=== PATIENT | female | born 1985 | race Caucasian/White ===

== ENCOUNTER 2017-03-23 18:51 | Emergency (ER) | payer MEDICAID ==
[~2017-03-23] VITALS: Ht 160 cm; Wt 61.0 kg
[2017-03-23 18:54] VITALS: Ht 160 cm; Wt 61.0 kg
[2017-03-23] MEDS ORDERED: SOD CHLORIDE 0.9% 1,000 ML IV ONE (19:30)
[2017-03-23] MEDS ORDERED: ONDANSETRON 4 MG INJ IV STA (19:30)
[2017-03-23 20:05] LABS: ADD SCAN DIFF NO
[2017-03-23 20:07] LABS: BASOPHILS % 0.4 % (0.0-2.0); EOSINOPHILS # 0.1 10^3/ul (0.0-0.5); EOSINOPHILS % 0.7 % (0.0-7.0); HEMATOCRIT 44.6 % (37.0-47.0); HEMOGLOBIN 14.1 g/dl (12.0-16.0); LYMPHOCYTES # 2.9 10^3/ul (0.8-2.9); LYMPHOCYTES % 28.5 % (15.0-51.0); MEAN CORPUSCULAR HGB CONC 31.6 g/dl (32.0-37.0); MEAN CORPUSCULAR VOLUME 85.4 fl (82.0-101.0); MONOCYTE # 0.6 10^3/ul (0.3-0.9); MONOCYTES % 6.3 % (0.0-11.0); NEUTROPHIL # 6.5 10^3/ul (1.6-7.5); NEUTROPHILS % 63.8 % (39.0-77.0); PLATELET COUNT 312 10^3/UL (140-415); RED BLOOD COUNT 5.22 10^6/ul (4.20-5.40); RED CELL DISTRIBUTION WIDTH 13.2 % (11.5-14.5); WHITE BLOOD COUNT 10.2 10^3/ul (4.8-10.8)
[2017-03-23 20:08] LABS: ADD UMIC YES; UR BILIRUBIN (Dip) NEGATIVE (NEGATIVE); UR BLOOD (Dip) NEGATIVE (NEGATIVE); UR CLARITY SLIGHTLY CLOUDY (CLEAR); UR COLOR LT. YELLOW (YELLOW); UR GLUCOSE (Dip) NEGATIVE (NEGATIVE); UR KETONES (Dip) NEGATIVE (NEGATIVE); UR LEUKOCYTE ESTERASE (Dip) 1+ (NEGATIVE); UR NITRITE (Dip) NEGATIVE (NEGATIVE); UR TOTAL PROTEIN (Dip) NEGATIVE (NEGATIVE); UR UROBILINOGEN (Dip) 0.2 E.U./dL (0.1-1.0)
[2017-03-23 20:20] LABS: UR BACTERIA FEW; UR SQUAMOUS EPITHELIAL CELL MODERATE; URINE RBCS NONE SEEN /HPF (0)
[2017-03-23 20:30] LABS: ALBUMIN 5.5 g/dl (3.3-4.9); ALBUMIN/GLOBULIN RATIO 1.83; BILIRUBIN,INDIRECT 0.3 mg/dl (0-1.1); BILIRUBIN,TOTAL 0.3 mg/dl (0.2-1.3); CALCIUM 9.9 mg/dl (8.4-10.2); CREATININE 0.66 mg/dl (0.44-1.00); TOTAL PROTEIN 8.5 g/dl (6.1-8.1)
[2017-03-23] MEDS ORDERED: LORAZEPAM 2 MG INJ IV ONE (21:30)
[2017-03-23] MEDS ORDERED: NITR-58 PO (21:56)
[2017-03-23] MEDS ORDERED: MECL12.574 PO (21:56)
[2017-03-23 22:05] VITALS: BP 127/68; PULSE 81; RESP 20
--- NOTE | 2017-03-23 23:42 | ERD ---
ER Documentation Chief Complaint Date/Time DATE: 03/23/17 TIME: 23:38 Chief Complaint dizziness x 1 week HPI 31-year-old female patient with no significant past medical history presents to the ED complaining of dizziness that occurred 1 week ago. She reports that she feels like her throat is closing and feels short of breath. States that she is nauseous and feels like she is sweating. Denies any chest pain, wheezing, abdominal pain, diarrhea, wheezing, weakness, numbness or tingling. Reports that the dizziness is positional. patient reports that her last menses was on March 01, 2017. Denies any head or neck trauma. ROS All systems reviewed and are negative except as per history of present illness. Medications Home Meds Active Scripts Meclizine Hcl* (Antivert*) 12.5 Mg Tab, 12.5 MG PO Q6H Y for DIZZINESS, #20 TAB Prov:BANG JOHNSON PA-C 03/23/17 Nitrofurantoin Monohyd Macrocr* (Macrobid*) 100 Mg Capsr, 100 MG PO BID for 7 Days, CAP Prov:BANG JOHNSON PA-C 03/23/17 Allergies Allergies: Coded Allergies: No Known Allergy (Unverified , 03/23/17) PMhx/Soc Medical and Surgical Hx: pt denies Medical Hx, pt denies Surgical Hx Hx Alcohol Use: No Hx Substance Use: No Hx Tobacco Use: No Smoking Status: Never smoker Physical Exam Vitals Vital Signs Date Time Temp Pulse Resp B/P Pulse Ox O2 Delivery O2 Flow Rate FiO2 03/23/17 22:05 81 20 127/68 99 Room Air 03/23/17 18:54 97.4 90 20 147/89 100 Physical Exam Const: Ale-yva-zioawcyvz, well-nourished. In no acute distress. Head: Atraumatic, normocephalic Eyes: Normal Conjunctiva without injection. No purulent discharge. PERRLA. EOMI ENT: Normal external ear. Ear canal without erythema. Tympanic membrane pearly gaytan without effusion or bulging. Nasal canal clear with normal turbinates. Moist oropharynx without tonsillar exudates. Non-erythematous pharynx. Uvula midline. No drooling. No trismus. Neck: No cervical midline tenderness. Full range of motion. No meningismus. No cervical lymphadenopathy. No JVD. Resp: Clear to auscultation bilaterally. No wheezing, rhonchi, rales, or crackles. No accessory muscle use. No retractions. Cardio: Regular rate and rhythm. No murmurs, rubs or gallops. Skin: Normal skin turgor. No petechiae or rashes Ext: No cyanosis, or edema. Distal pulses intact bilaterally. Neur: Awake and alert. Normal gait. Normal coordination. Cranial Nerves II- VII intact. Normal finger to nose. Muscle strength 5/5. Sensation intact. Psych: Normal Mood and Affect Results 24 hrs Laboratory Tests Test 03/23/17 19:45 03/23/17 19:48 Urine Color LT. YELLOW Urine Clarity SLIGHTLY CLOUDY Urine pH 8.5 Urine Specific [place] 1.010 Urine Ketones NEGATIVE Urine Nitrite NEGATIVE Urine Bilirubin NEGATIVE Urine Urobilinogen 0.2 E.U./dL Urine Leukocyte Esterase 1+ Urine Microscopic RBC NONE SEEN/HPF Urine Microscopic WBC 2-5/HPF Urine Squamous Epithelial Cells MODERATE Urine Amorphous Phosphates MANY Urine Bacteria FEW Urine Hemoglobin NEGATIVE Urine Glucose NEGATIVE% Urine Total Protein NEGATIVE White Blood Count 10.210^3/ul Red Blood Count 5.2210^6/ul Hemoglobin 14.1g/dl Hematocrit 44.6% Mean Corpuscular Volume 85.4fl Mean Corpuscular Hemoglobin 27.0pg Mean Corpuscular Hemoglobin Concent 31.6g/dl Red Cell Distribution Width 13.2% Platelet Count 11368^3/UL Mean Platelet Volume 10.0fl Neutrophils % 63.8% Lymphocytes % 28.5% Monocytes % 6.3% Eosinophils % 0.7% Basophils % 0.4% Nucleated Red Blood Cells % 0.0/100WBC Neutrophils # 6.510^3/ul Lymphocytes # 2.910^3/ul Monocytes # 0.610^3/ul Eosinophils # 0.110^3/ul Basophils # 0.010^3/ul Nucleated Red Blood Cells # 0.010^3/ul Sodium Level 143mmol/L Potassium Level 4.0mmol/L Chloride Level 104mmol/L Carbon Dioxide Level 27mmol/L Anion Gap 16 Blood Urea Nitrogen 8mg/dl Creatinine 0.66mg/dl Glucose Level 93mg/dl Calcium Level 9.9mg/dl Total Bilirubin 0.3mg/dl Direct Bilirubin 0.00mg/dl Indirect Bilirubin 0.3mg/dl Aspartate Amino Transf (AST/SGOT) 25IU/L Alanine Aminotransferase (ALT/SGPT) 47IU/L Alkaline Phosphatase 73IU/L Total Protein 8.5g/dl Albumin 5.5g/dl Globulin 3.00g/dl Albumin/Globulin Ratio 1.83 Lipase 111U/L Current Medications Medications (Trade) Dose Ordered Sig/Cherrie Route PRN Reason Start Time Stop Time Status Last Admin Dose Admin Sodium Chloride (NS) 1,000 ml @ 1,000 mls/hr Q1H ONCE IV 03/23/17 19:30 03/23/17 20:29 DC 03/23/17 19:55 Ondansetron HCl (Zofran Inj) 4 mg ONCE STAT IV 03/23/17 19:30 03/23/17 19:33 DC 03/23/17 19:56 Lorazepam (Ativan) 1 mg ONCE ONCE IV 03/23/17 21:30 03/23/17 21:31 DC 03/23/17 21:15 Procedures/MDM This is a 31-year-old female patient with no significant past medical history presents the ED complaining of dizziness that occurred 1 week ago. Patient is afebrile nontoxic appearing. Patient has normal vital signs. Patient was further worked up with CBC, CMP, lipase, UA, EKG, urine . Patient's pain and symptoms have improved after treatment with 1 L of normal saline, Ativan, Zofran. CBC: No leukocytosis. No e/o of systemic infection. No e/o anemia. CMP: No e/o severe acidosis, alkalosis, renal failure, diabetic ketoacidosis, liver disease Lipase within normal limits. Urine: 1+ leukocyte esterase with WBC 2-5, no nitrites, no hematuria. Urine : Negative EKG reviewed and interpreted by Dr. Elizalde Rate/Rhythm: [91 bpm, Normal Sinus Rhythm] No ectopy, no ST elevations, normal axis. QRS, ST, T-waves: [No changes consistent w/ acute ischemia] Impression: [No evidence of ischemia or arrhythmia] Patient likely has positional vertigo versus anxiety. Low suspicion for acute myocardial infarction, pneumothorax, pneumonia, cardiac tamponade, pulmonary embolism, AAA, aortic dissection, Boerhaave's syndrome, cardiac dysrhythmias, meningitis, intracranial bleed, seizure, stroke, TIA or other emergent conditions. Low suspicion for gastritis, GERD, peptic ulcer disease, cholecystitis, choledocholithiasis, cholangitis, pancreatitis, appendicitis, bowel obstruction, ileus, volvulus, nephrolithiasis, pyelonephritis, hepatitis, perforated viscus, diverticulitis, abdominal hernia, acute abdomen, mesenteric ischemia or other emergent conditions. Discharge medications: Meclizine, Macrobid Follow up with primary care physician in 1-2 days for referral to broomcorn scraper. Instructed patient to return to the ED sooner for any worsening symptoms. Patient's questions were answered. Patient understood and agreed with discharge plan. Patient discharged stable. Departure Diagnosis: Primary Impression: Dizziness Condition: Stable Patient Instructions: Urinary Tract Infections in Women, Inner Ear Problems: Causes of Dizziness (Vertigo), Dizziness, Unk Cause Referrals: [facility] YOU HAVE RECEIVED A MEDICAL SCREENING EXAM AND THE RESULTS INDICATE THAT YOU DO NOT HAVE A CONDITION THAT REQUIRES URGENT TREATMENT IN THE EMERGENCY DEPARTMENT. FURTHER EVALUATION AND TREATMENT OF YOUR CONDITION CAN WAIT UNTIL YOU ARE SEEN IN YOUR DOCTORS OFFICE WITHIN THE NEXT 1-2 DAYS. IT IS YOUR RESPONSIBILITY TO MAKE AN APPOINTMENT FOR FOLOW-UP CARE. IF YOU HAVE A PRIMARY DOCTOR --you should call your primary doctor and schedule an appointment IF YOU DO NOT HAVE A PRIMARY DOCTOR YOU CAN CALL OUR PHYSICIAN REFERRAL HOTLINE AT IF YOU CAN NOT AFFORD TO SEE A PHYSICIAN YOU CAN CHOSE FROM THE FOLLOWING [facility] [address] [facility]. [facility] [address] [facility]. [facility] [address] [facility] [facility] [address] [facility] [facility] [address] [facility]. [facility]. [address] [facility]. [facility] YOU HAVE RECEIVED A MEDICAL SCREENING EXAM AND THE RESULTS INDICATE THAT YOU DO NOT HAVE A CONDITION THAT REQUIRES URGENT TREATMENT IN THE EMERGENCY DEPARTMENT. FURTHER EVALUATION AND TREATMENT OF YOUR CONDITION CAN WAIT UNTIL YOU ARE SEEN IN YOUR DOCTORS OFFICE WITHIN THE NEXT 1-2 DAYS. IT IS YOUR RESPONSIBILITY TO MAKE AN APPOINTMENT FOR FOLOW-UP CARE. IF YOU HAVE A PRIMARY DOCTOR --you should call your primary doctor and schedule and appointment IF YOU DO NOT HAVE A PRIMARY DOCTOR YOU CAN CALL OUR PHYSICIAN REFERRAL HOTLINE AT . IF YOU CAN NOT AFFORD TO SEE A PHYSICIAN YOU CAN CHOSE FROM THE FOLLOWING [facility] INSTITUTIONS: [facility] [address] [place] [address] [facility] [address] [place] [address] [facility] [address] [place] [address] [facility] URGENT CARE/SPECIALTIES Additional Instructions: Llame al doctor MAANA y dahlia juarez JOSEPH PARA DENTRO DE 1-2 COOK.Dgale a la secretaria que nosotros le instruimos hacer esta joseph.Avise o llame si lu condicin se empeora antes de la joseph. Regresa aqui si peor o no mejor. BANG JOHNSON PA-C Mar 23, 2017 23:42 condicin se empeora antes de la joseph. Regresa aqui si peor o no mejor. BANG JOHNSON PA-C Mar 23, 2017 23:42
== END 2017-03-23 22:07 | disposition home or self-care (01) ==
LOC: FTE 18:51
DX: R42 Dizziness and giddiness (principal); R11.0 Nausea
CPT/HCPCS: 80053; 81001; 83690; 85025; 93005; J2060; J2405; J7030; 96374; 96375